=== PATIENT | female | born 1965 | race Caucasian/White ===

== ENCOUNTER 2019-09-19 18:38 | Emergency (ER) | payer OTHER ==
[~2019-09-19] VITALS: Ht 165.1 cm; Wt 72.6 kg
--- NOTE | 2019-09-19 19:00 | NUR ---
Hands off report given to sumit Matamoros.
--- NOTE | 2019-09-19 19:10 | NUR ---
Colostomy bag placed per MD order.
--- NOTE | 2019-09-19 19:40 | NUR ---
Spoke with Naga from [facility] for transport back to [facility]. ETA 1 hour. Approved by nursing hatchery supervisor.
--- NOTE | 2019-09-19 20:31 | NUR ---
[facility] here to transport pt back to [facility], report given to EMT Ceasar. Spoke with Fozia from [facility] acknowledging pt being d/c & sent back at this time. Patient discharged to home in stable condition. Written and verbal after care instructions given. Patient verbalizes understanding of instructions. Stressed follow up or return to ER for worsening s/s.
[2019-09-19 20:32] VITALS: BP 140/89
== END 2019-09-19 20:37 ==
LOC: ER 18:42
DX: Z43.3 Encounter for attention to colostomy (principal); Z85.038 Personal history of other malignant neoplasm of large intestine; Z90.49 Acquired absence of other specified parts of digestive tract
CPT/HCPCS: A4663